=== PATIENT | female | born 1970 | race Hispanic/Latino ===

== ENCOUNTER → 2023-06-25 11:21 | Outpatient (REF) | payer OTHER, SELFPAY ==
[2023-06-25 12:13] LABS: % Basophils 0.6 % (0-2); % Eosinophils 3.3 % (0-6); % Immature Granulocytes 0.4 % (0-0.5); % Lymphocytes 30.8 % (20.5-51.1); % Neutrophils 58.9 % (42.2-75.2); Absolute Eosinophils 0.2 10^3/uL (0-0.7); Absolute Lymphocytes 1.6 10^3/uL (1.2-3.4); Absolute Monocytes 0.3 10^3/uL (0.1-0.6); Absolute Neutrophils 3.1 10^3/uL (1.4-6.5); Hematocrit 40.6 % (37.0-47.0); Hemoglobin 14.5 g/dL (12.0-16.0); Mean Corp Hgb Conc. 35.7 g/dL (33.0-37.0); Mean Corpuscular Hgb 29.2 pg (27.0-31.0); Mean Corpuscular Volume 81.9 fL (81.0-99.0); Mean Platelet Volume 10.6 fL (7.4-10.4); Nucleated Red Blood Cells % 0 %; Platelet Count 206 10^3/uL (130-400); Red Blood Cell Count 4.96 10^6/uL (4.20-5.40); Red Cell Dist. Width 12.3 % (11.5-14.5); White Blood Cell Count 5.2 10^3/uL (4.8-10.8)
[2023-06-25 12:38] LABS: Iron 92 ug/dl (37-170)
[2023-06-25 12:48] LABS: Percent Saturation 28 % (20-50); Total Iron Binding Capacity 325 ug/dl (265-497)
[2023-06-25 13:14] LABS: Ferritin 53.7 ng/ml (11.1-264.0)
[2023-06-25 13:45] LABS: Folate > 20.0 ng/ml (2.76-20); Vitamin B12 990 pg/ml (239-931)
== END ==
LOC: REG 11:21
PROVIDERS: ATTENDING PHYSICIAN Internal Medicine Hematology & Oncology; FAMILY PHYSICIAN Nurse Practitioner Adult Health
DX: E53.9 Vitamin B deficiency, unspecified (principal); D50.9 Iron deficiency anemia, unspecified
CPT/HCPCS: 36415; 82607; 82728; 82746; 83540; 83550; 85025

== ENCOUNTER 2023-07-06 14:08 | Outpatient (RCR) | payer OTHER, SELFPAY ==
[2023-07-06 14:26] VITALS: BP 143/90
[2023-07-06] MEDS: CYANOCOBALAMIN 1000 MCG IM (14:30)
== END 2023-07-19 23:59 | disposition home or self-care (01) ==
LOC: OID 14:08
PROVIDERS: ATTENDING PHYSICIAN Internal Medicine Hematology & Oncology; FAMILY PHYSICIAN Nurse Practitioner Adult Health
DX: D50.9 Iron deficiency anemia, unspecified (principal); E53.9 Vitamin B deficiency, unspecified
CPT/HCPCS: 96372

== ENCOUNTER → 2023-07-23 09:56 | Outpatient (REF) | payer OTHER, SELFPAY ==
[2023-07-23 11:52] LABS: ALT (SGPT) 34 U/L (0-35); AST (SGOT) 31 U/L (14-36); Albumin 4.4 g/dl (3.5-5.0); Alkaline Phosphatase 140 U/L (38-126); Blood Urea Nitrogen 14 mg/dl (7-17); Calcium 8.7 mg/dl (8.4-10.2); Carbon Dioxide 27 mmol/L (22-30); Chloride 104 mmol/L (98-107); GGTP 16 U/L (12-43); Glucose 92 mg/dl (70-99); HDL Cholesterol 31 mg/dl; Potassium 3.5 mmol/L (3.5-5.1); Sodium 138 mmol/L (135-145); Total Bilirubin 0.5 mg/dl (0.2-1.3); Total Cholesterol 232 mg/dl (50-199); Total Protein 7.1 g/dl (6.3-8.2); eGFR > 60.00
[2023-07-23 11:57] LABS: Triglyceride 468 mg/dl (10-149)
[2023-07-23 12:11] LABS: Free T4 1.23 ng/dl (0.78-2.19)
[2023-07-23 12:25] LABS: TSH 3.12 uIU/ml (0.47-4.68)
[2023-07-23 12:26] LABS: LDL Cholesterol, Direct 114 mg/dl
== END ==
LOC: REG 09:56
PROVIDERS: ATTENDING PHYSICIAN Nurse Practitioner Adult Health
DX: I10 Essential (primary) hypertension (principal); E78.2 Mixed hyperlipidemia; E03.9 Hypothyroidism, unspecified
CPT/HCPCS: 36415; 80053; 80061; 82977; 83721; 84439; 84443

== ENCOUNTER 2023-08-03 15:22 | Outpatient (RCR) | payer OTHER, SELFPAY ==
[2023-08-03 15:20] VITALS: BP 151/89
[2023-08-03] MEDS: CYANOCOBALAMIN 1000 MCG IM (15:31)
== END 2023-08-19 23:59 | disposition home or self-care (01) ==
LOC: OID 15:22
PROVIDERS: ATTENDING PHYSICIAN Internal Medicine Hematology & Oncology; FAMILY PHYSICIAN Nurse Practitioner Adult Health
DX: D50.9 Iron deficiency anemia, unspecified (principal); E53.9 Vitamin B deficiency, unspecified
CPT/HCPCS: 96372

== ENCOUNTER 2023-08-31 15:21 | Outpatient (RCR) | payer OTHER, SELFPAY ==
[2023-08-31 15:25] VITALS: BP 150/84
[2023-08-31] MEDS: CYANOCOBALAMIN 1000 MCG IM (15:33)
== END 2023-09-03 09:38 | disposition home or self-care (01) ==
LOC: OID 15:21
PROVIDERS: ATTENDING PHYSICIAN Internal Medicine Hematology & Oncology; FAMILY PHYSICIAN Nurse Practitioner Adult Health
DX: D50.9 Iron deficiency anemia, unspecified (principal); E53.9 Vitamin B deficiency, unspecified
CPT/HCPCS: 96372

== ENCOUNTER 2023-10-22 15:14 | Outpatient (RCR) | payer OTHER, SELFPAY ==
[2023-10-22] MEDS: CYANOCOBALAMIN 1000 MCG IM (15:26)
[2023-10-22 15:43] VITALS: BP 139/95
[2023-10-22 16:12] LABS: % Basophils 0.8 % (0-2); % Eosinophils 7.3 % (0-6); % Immature Granulocytes 0.2 % (0-0.5); % Lymphocytes 32.6 % (20.5-51.1); % Monocytes 6.9 % (1.7-9.3); % Neutrophils 52.2 % (42.2-75.2); Absolute Eosinophils 0.4 10^3/uL (0-0.7); Absolute Lymphocytes 1.7 10^3/uL (1.2-3.4); Absolute Monocytes 0.4 10^3/uL (0.1-0.6); Absolute Neutrophils 2.7 10^3/uL (1.4-6.5); Hemoglobin 14.1 g/dL (12.0-16.0); Mean Corp Hgb Conc. 35.3 g/dL (33.0-37.0); Mean Corpuscular Hgb 28.8 pg (27.0-31.0); Mean Corpuscular Volume 81.8 fL (81.0-99.0); Mean Platelet Volume 11.2 fL (7.4-10.4); Nucleated Red Blood Cells % 0 %; Platelet Count 187 10^3/uL (130-400); Red Blood Cell Count 4.89 10^6/uL (4.20-5.40); White Blood Cell Count 5.2 10^3/uL (4.8-10.8)
[2023-10-22 16:27] LABS: Iron 77 ug/dl (37-170)
[2023-10-22 16:43] LABS: Percent Saturation 24 % (20-50); Total Iron Binding Capacity 312 ug/dl (265-497)
[2023-10-22 17:07] LABS: Ferritin 51.6 ng/ml (11.1-264.0)
[2023-10-22 17:38] LABS: Folate > 20.0 ng/ml (2.76-20); Vitamin B12 > 1000 pg/ml (239-931)
== END 2023-11-18 23:59 | disposition home or self-care (01) ==
LOC: OID 15:14
PROVIDERS: ATTENDING PHYSICIAN Internal Medicine Hematology & Oncology; FAMILY PHYSICIAN Nurse Practitioner Adult Health
DX: D50.9 Iron deficiency anemia, unspecified (principal); T45.4X5A Adverse effect of iron and its compounds, initial encounter; E53.9 Vitamin B deficiency, unspecified; Y93.89 Activity, other specified
CPT/HCPCS: 36415; 82607; 82728; 82746; 83540; 83550; 85025; 96372

== ENCOUNTER → 2023-11-06 10:41 | Outpatient (REF) | payer OTHER, SELFPAY ==
[2023-11-06 11:49] LABS: Blood Urea Nitrogen 10 mg/dl (7-17); Carbon Dioxide 30 mmol/L (22-30); Chloride 103 mmol/L (98-107); Glucose 96 mg/dl (70-99); HDL Cholesterol 36 mg/dl; LDL Cholesterol, Calculated 144 mg/dl; Potassium 3.6 mmol/L (3.5-5.1); Sodium 140 mmol/L (135-145); Total Cholesterol 227 mg/dl (50-199); Triglyceride 236 mg/dl (10-149); Very Low Density Lipoprotein 47 mg/dl (0-30); eGFR > 60.00
== END ==
LOC: CLINIC 10:41
PROVIDERS: ATTENDING PHYSICIAN Nurse Practitioner Adult Health
DX: E78.2 Mixed hyperlipidemia (principal); I10 Essential (primary) hypertension
CPT/HCPCS: 36415; 80048; 80061

== ENCOUNTER 2023-11-23 15:17 | Outpatient (RCR) | payer OTHER, SELFPAY ==
[2023-11-23] MEDS: CYANOCOBALAMIN 1000 MCG IM (15:40)
[2023-11-23 15:41] LABS: % Basophils 0.4 % (0-2); % Eosinophils 3.3 % (0-6); % Immature Granulocytes 0.7 % (0-0.5); % Lymphocytes 27.7 % (20.5-51.1); % Monocytes 7.3 % (1.7-9.3); % Neutrophils 60.6 % (42.2-75.2); Absolute Eosinophils 0.2 10^3/uL (0-0.7); Absolute Lymphocytes 1.5 10^3/uL (1.2-3.4); Absolute Monocytes 0.4 10^3/uL (0.1-0.6); Absolute Neutrophils 3.3 10^3/uL (1.4-6.5); Hematocrit 37.8 % (37.0-47.0); Mean Corpuscular Hgb 29.2 pg (27.0-31.0); Mean Corpuscular Volume 78.8 fL (81.0-99.0); Mean Platelet Volume 10.8 fL (7.4-10.4); Nucleated Red Blood Cells % 0 %; Platelet Count 200 10^3/uL (130-400); Red Cell Dist. Width 12.1 % (11.5-14.5); White Blood Cell Count 5.5 10^3/uL (4.8-10.8)
[2023-11-23 15:46] VITALS: BP 144/91
[2023-11-23 16:01] LABS: Iron 103 ug/dl (37-170)
[2023-11-23 16:10] LABS: Percent Saturation 33 % (20-50); Total Iron Binding Capacity 305 ug/dl (265-497)
[2023-11-23 16:37] LABS: Ferritin 43.5 ng/ml (11.1-264.0)
[2023-11-23 17:09] LABS: Folate 17.7 ng/ml (2.76-20); Vitamin B12 780 pg/ml (239-931)
== END 2023-11-26 08:20 | disposition home or self-care (01) ==
LOC: OID 15:17
PROVIDERS: ATTENDING PHYSICIAN Internal Medicine Hematology & Oncology; FAMILY PHYSICIAN Nurse Practitioner Adult Health
DX: D50.9 Iron deficiency anemia, unspecified (principal); T45.4X5A Adverse effect of iron and its compounds, initial encounter; Y93.89 Activity, other specified; E53.9 Vitamin B deficiency, unspecified
CPT/HCPCS: 82607; 82728; 82746; 83540; 83550; 85025; 96372

== ENCOUNTER → 2024-02-08 11:48 | Outpatient (REF) | payer OTHER, SELFPAY ==
[2024-02-08 14:26] LABS: HDL Cholesterol 36 mg/dl; LDL Cholesterol, Calculated 150 mg/dl; Total Cholesterol 238 mg/dl (50-199); Triglyceride 260 mg/dl (10-149); Very Low Density Lipoprotein 52 mg/dl (0-30)
== END ==
LOC: REG 11:48
PROVIDERS: ATTENDING PHYSICIAN Nurse Practitioner Adult Health
DX: E78.2 Mixed hyperlipidemia (principal)
CPT/HCPCS: 36415; 80061

== ENCOUNTER → 2024-02-29 09:03 | Outpatient (REF) | payer OTHER, SELFPAY ==
[2024-02-29 09:39] LABS: % Basophils 0.8 % (0-2); % Eosinophils 3.6 % (0-6); % Immature Granulocytes 0.3 % (0-0.5); % Monocytes 10.2 % (1.7-9.3); % Neutrophils 47.1 % (42.2-75.2); Absolute Eosinophils 0.1 10^3/uL (0-0.7); Absolute Lymphocytes 1.5 10^3/uL (1.2-3.4); Absolute Monocytes 0.4 10^3/uL (0.1-0.6); Absolute Neutrophils 1.9 10^3/uL (1.4-6.5); Hematocrit 38.9 % (37.0-47.0); Hemoglobin 13.9 g/dL (12.0-16.0); Mean Corp Hgb Conc. 35.7 g/dL (33.0-37.0); Mean Corpuscular Hgb 29.1 pg (27.0-31.0); Mean Corpuscular Volume 81.6 fL (81.0-99.0); Mean Platelet Volume 10.7 fL (7.4-10.4); Nucleated Red Blood Cells % 0 %; Platelet Count 184 10^3/uL (130-400); Red Blood Cell Count 4.77 10^6/uL (4.20-5.40); White Blood Cell Count 3.9 10^3/uL (4.8-10.8)
[2024-02-29 11:02] LABS: Iron 86 ug/dl (37-170)
[2024-02-29 11:12] LABS: Percent Saturation 27 % (20-50); Total Iron Binding Capacity 315 ug/dl (265-497)
[2024-02-29 12:08] LABS: Ferritin 53.1 ng/ml (11.1-264.0)
[2024-02-29 12:40] LABS: Folate 19.4 ng/ml (2.76-20); Vitamin B12 799 pg/ml (239-931)
== END ==
LOC: CLINIC 09:03
PROVIDERS: ATTENDING PHYSICIAN Internal Medicine Hematology & Oncology; FAMILY PHYSICIAN Nurse Practitioner Adult Health
DX: E53.9 Vitamin B deficiency, unspecified (principal); D50.9 Iron deficiency anemia, unspecified
CPT/HCPCS: 36415; 82607; 82728; 82746; 83540; 83550; 85025

== ENCOUNTER → 2024-06-04 08:48 | Outpatient (REF) | payer OTHER, SELFPAY ==
[2024-06-04 09:22] LABS: % Basophils 0.9 % (0-2); % Eosinophils 2.8 % (0-6); % Immature Granulocytes 0.4 % (0-0.5); % Monocytes 7.4 % (1.7-9.3); % Neutrophils 55.5 % (42.2-75.2); Absolute Eosinophils 0.1 10^3/uL (0-0.7); Absolute Lymphocytes 1.5 10^3/uL (1.2-3.4); Absolute Monocytes 0.3 10^3/uL (0.1-0.6); Absolute Neutrophils 2.5 10^3/uL (1.4-6.5); Hematocrit 41.9 % (37.0-47.0); Hemoglobin 14.7 g/dL (12.0-16.0); Mean Corp Hgb Conc. 35.1 g/dL (33.0-37.0); Mean Corpuscular Hgb 28.5 pg (27.0-31.0); Mean Corpuscular Volume 81.2 fL (81.0-99.0); Mean Platelet Volume 10.4 fL (7.4-10.4); Nucleated Red Blood Cells % 0 %; Platelet Count 190 10^3/uL (130-400); Red Blood Cell Count 5.16 10^6/uL (4.20-5.40); Red Cell Dist. Width 12.1 % (11.5-14.5); White Blood Cell Count 4.6 10^3/uL (4.8-10.8)
[2024-06-04 10:40] LABS: ALT (SGPT) 38 U/L (0-35); AST (SGOT) 35 U/L (14-36); Albumin 4.4 g/dl (3.5-5.0); Alkaline Phosphatase 134 U/L (38-126); Blood Urea Nitrogen 16 mg/dl (7-17); Calcium 9.2 mg/dl (8.4-10.2); Carbon Dioxide 31 mmol/L (22-30); Chloride 101 mmol/L (98-107); Glucose 100 mg/dl (70-99); HDL Cholesterol 38 mg/dl; LDL Cholesterol, Calculated 172 mg/dl; Potassium 3.9 mmol/L (3.5-5.1); Sodium 139 mmol/L (135-145); Total Bilirubin 0.7 mg/dl (0.2-1.3); Total Cholesterol 256 mg/dl (50-199); Total Protein 7.2 g/dl (6.3-8.2); Triglyceride 231 mg/dl (10-149); Very Low Density Lipoprotein 46 mg/dl (0-30); eGFR > 60.00
[2024-06-04 11:09] LABS: TSH 1.89 uIU/ml (0.47-4.68)
== END ==
LOC: REG 08:48
PROVIDERS: ATTENDING PHYSICIAN Nurse Practitioner Adult Health
DX: D64.9 Anemia, unspecified (principal); I10 Essential (primary) hypertension; R03.0 Elevated blood-pressure reading, without diagnosis of hypertension; E78.2 Mixed hyperlipidemia
CPT/HCPCS: 36415; 80053; 80061; 82248; 84443; 85025